=== PATIENT | female | born 1965 | race Hispanic/Latino ===

== ENCOUNTER 2018-04-02 08:58 | Emergency (ER) | payer BC, OTHER ==
[2018-04-02] MEDS ORDERED: KETOROLAC TROMETHAMINE 60 MG/2 ML VIAL ONE (09:29)
[2018-04-02] MEDS ORDERED: ONDANSETRON ODT 4 MG TAB ONE (09:30)
[2018-04-02] MEDS ORDERED: HYDROCODONE/ACETAMINOPHEN 10/325 MG TAB ONE (09:30)
[2018-04-02] MEDS ORDERED: METHYLPREDNISOLONE SOD SUCC 125MG/2ML VIAL ONE (09:58)
== END 2018-04-02 10:43 | disposition home or self-care (01) ==
LOC: EDH 08:58
DX: M54.5 Low back pain (principal); M43.10 Spondylolisthesis, site unspecified; R73.9 Hyperglycemia, unspecified; Z98.890 Other specified postprocedural states
CPT/HCPCS: 72100; 82948; 96372 ×2; 99284; J1885; J2930

== ENCOUNTER 2018-05-01 09:20 | Emergency (ER) | payer BC ==
[2018-05-01] MEDS ORDERED: DEXAMETHASONE SOD PHOSPHATE 10MG/ML 1ML VIAL ONE (10:01)
[2018-05-01] MEDS ORDERED: MORPHINE SULFATE 4 MG/1ML SYG ONE (10:01)
[2018-05-01] MEDS ORDERED: ONDANSETRON HCL 4 MG/2 ML VIAL ONE (10:01)
[2018-05-01] MEDS ORDERED: KETOROLAC TROMETHAMINE 30MG/ML ONE (10:01)
[2018-05-01] MEDS ORDERED: HYDROMORPHONE HCL 0.5 MG/0.5 ML ML ONE (10:48)
== END 2018-05-01 12:24 | disposition home or self-care (01) ==
LOC: EDH 09:20
DX: M54.16 Radiculopathy, lumbar region (principal); R20.2 Paresthesia of skin; Z98.890 Other specified postprocedural states
CPT/HCPCS: 96374; 96375; 99284; J1100; J1170; J1885; J2270; J2405

== ENCOUNTER 2018-10-09 11:54 | Emergency (ER) | payer BC ==
[2018-10-09] MEDS ORDERED: KETOROLAC TROMETHAMINE 30MG/ML ONE (12:35)
[2018-10-09] MEDS ORDERED: ONDANSETRON HCL 4 MG/2 ML VIAL ONE (12:35)
[2018-10-09] MEDS ORDERED: DEXAMETHASONE SOD PHOSPHATE 10MG/ML 1ML VIAL ONE (12:35)
[2018-10-09] MEDS ORDERED: SODIUM CHLORIDE 0.9% 1000ML 1,000 ML IV ONE (12:35)
[2018-10-09] MEDS ORDERED: HYDROMORPHONE 1 MG/1 ML AMP ONE (12:36)
== END 2018-10-09 13:45 | disposition home or self-care (01) ==
LOC: EDH 11:54
DX: M54.42 Lumbago with sciatica, left side (principal); R20.2 Paresthesia of skin; I10 Essential (primary) hypertension; Z98.890 Other specified postprocedural states
CPT/HCPCS: 96374; 96375; 99284; J1100; J1170; J1885; J2405; J7030

== ENCOUNTER 2019-03-20 10:35 | Emergency (ER) | payer BC ==
[2019-03-20] MEDS ORDERED: ORPHENADRINE CITRATE 30 MG/ML ML ONE (11:12)
[2019-03-20] MEDS ORDERED: KETOROLAC TROMETHAMINE 60 MG/2 ML VIAL ONE (11:13)
[2019-03-20] MEDS ORDERED: LIDOCAINE 5% TOPICAL PATCH TP ONE (11:13)
[2019-03-20 11:37] LABS: APPEARANCE,URINE Cloudy (CLEAR); BILIRUBIN,URINE Negative (NEGATIVE); COLOR,URINE Dark Yellow (YELLOW); GLUCOSE, URINE (UA) Negative (NEGATIVE); KETONES,URINE Negative (NEGATIVE); LEUKOCYTE ESTERASE ,URINE Negative (NEGATIVE); NITRATE,URINE Negative (NEGATIVE); OCCULT BLOOD,URINE Negative (NEGATIVE); PROTEIN,URINE Negative (NEGATIVE)
[2019-03-20 12:10] LABS: AMORPHOUS SEDIMENT,UR Few /LPF (None Seen); BACTERIA,URINE Few /HPF (None Seen); HYALINE CASTS, URINE 0-1 /LPF (0-1 /LPF); MUCUS,URINE Many LPF (None Seen); RBC,URINE None Seen /HPF (0-1); SQUAMOUS EPITHELIAL CELL,UR Moderate /HPF (0-2); WBC,URINE 0-1 /HPF (0-1)
== END 2019-03-20 11:57 | disposition home or self-care (01) ==
LOC: EDH 10:35
DX: M54.42 Lumbago with sciatica, left side (principal); I10 Essential (primary) hypertension; Z98.890 Other specified postprocedural states
CPT/HCPCS: 81001; 96372 ×2; 99284; J1885; J2360

== ENCOUNTER 2019-07-26 14:17 | Observation (INO) | payer BC ==
[~2019-07-26] VITALS: Ht 149.9 cm; Wt 51.7 kg
[2019-07-26] MEDS ORDERED: LIDOCAINE HCL 1% 20 ML VIAL ONE (14:41)
[2019-07-26] MEDS ORDERED: ONDANSETRON HCL 4 MG/2 ML VIAL ONE (14:41)
[2019-07-26] MEDS ORDERED: MORPHINE SULFATE 4 MG/1ML SYG ONE (14:41)
[2019-07-26] MEDS ORDERED: TETANUS/DIPHTHERIA TOXOID [ADULT] 0.5 ML VIAL IM ONE (14:42)
[2019-07-26 15:07] LABS: BASOPHILS % (AUTO) 0.6 % (0.0-5.0); EOSINOPHILS % (AUTO) 0.8 % (0.0-8.0); HEMATOCRIT 40.6 % (36-48); LYMPHOCYTES % (AUTO) 41.5 % (21.0-51.0); MEAN CORPUSCULAR HEMOGLOBIN 29.4 pg (27.0-33.0); MEAN CORPUSCULAR HGB CONC 33.7 g/dL (32.0-36.0); MEAN CORPUSCULAR VOLUME 87.4 fL (79-99); MONOCYTES % (AUTO) 6.5 % (3.0-13.0); NEUTROPHILS % (AUTO) 50.6 % (40.0-77.0); NUCLEATED RED BLOOD CELLS 0.1 % (0.0-0.19); PLATELET COUNT (AUTO) 311 K/uL (130-400); RED BLOOD CELL COUNT(AUTO) 4.64 MIL/uL (4.00-5.50); RED CELL DISTRIBUTION WIDTH 14.4 % (11.0-15.5); WHITE BLOOD COUNT (AUTO) 8.9 K/uL (4.8-10.8)
[2019-07-26 15:16] LABS: CREATININE 0.9 mg/dL (0.5-1.5); POTASSIUM 3.9 mmol/L (3.5-5.1)
[2019-07-26] MEDS ORDERED: SODIUM CHLORIDE 0.9% 50 ML IV ONE (15:42)
[2019-07-26] MEDS ORDERED: CEFAZOLIN SODIUM 1 GM VIAL ONE (15:42)
[2019-07-26 20:15] VITALS: BP 153/108
--- NOTE | 2019-07-26 20:15 | NUR ---
ADMISSION. PT ADMITTED INTO ROOM 402 FROM ER. PT AWAKE, ALERT AND RESPONSIVE, [place]AH[place] SPEAKING ONLY. PT C/O PAIN TO IV SITE ON RT ANTECUBITAL, IV CATHETER DISCONTINUED, CATHETER TIP INTACT. NEW IV PLACED IN RIGHT HAND. LEFT HAND DRESSING OBSERVED NO BLEEDING OR C/O PAIN AT THIS TIME. FAMILY AT BEDSIDE AND PT ORIENTED TO ROOM. CALL MAE WITHIN REACH, BED IN LOWEST POSITION. Addendum: 07/27/19 at 0124 by ERIS GARZA RN Amended: Links added.
[2019-07-26] MEDS ORDERED: MORPHINE SULFATE 2 MG/ML 1ML SYG IVP PRN (20:45)
--- NOTE | 2019-07-26 21:15 | NUR ---
MD PERALTA PAGED. SPOKE TO AT THIS TIME, INFORMED THAT PT IS IN ROOM 402. STATED TO KEEP PT NPO, AND THAT HE HAD ALREADY SCHEDULED SURGERY FOR TOMORROW 07/27/19 AT 0800, TO MAKE SURE CONSENT WAS SIGNED.
[2019-07-26] MEDS ORDERED: LISI-613 PO (21:45)
[2019-07-26] MEDS ORDERED: METF-446 PO (21:45)
[2019-07-26] MEDS: ACETAMINOPHEN-CODEINE 300/30MG TAB PO PRN (21:56)
[2019-07-26 23:29] VITALS: BP 134/85
[2019-07-26] MEDS: CEFAZOLIN SODIUM 1 GM VIAL IVP SCH (23:39)
[2019-07-27] VITALS (24 sets, daily range): BP systolic 111–156; BP diastolic 73–103
[2019-07-27] MEDS: CEFAZOLIN SODIUM 1 GM VIAL IVP SCH (07:41)
[2019-07-27] MEDS ORDERED: SODIUM CHLORIDE 0.9% 1000ML 1,000 ML IV ONE (08:12)
[2019-07-27] MEDS ORDERED: FENTANYL CITRATE PF 50 MCG/1 ML 5ML AMP IV ONE (08:18)
[2019-07-27] MEDS ORDERED: PROPOFOL 10 MG/ML 20ML VIAL IV ONE (08:18)
[2019-07-27] MEDS ORDERED: LIDOCAINE PF 2% 5ML ABBOJECT ONE (08:18)
[2019-07-27] MEDS ORDERED: MEPERIDINE-PF 25 MG/ML SYG ONE ×2 (09:12→09:23)
[2019-07-27] MEDS ORDERED: ONDANSETRON HCL 4 MG/2 ML VIAL ONE (09:17)
--- NOTE | 2019-07-27 11:00 | NUR ---
INITIAL MET W PT AND DAUGHTER AT BEDSIDE LIVES W DAUGHTER JOSELYN, DAUGHTER BRODIE WILL SUPPLY TRANSPORT AAOX3, S/P SURGERY ON FINGER, PT IS INP, EMPLOYED, NO MOBLITY DEFICITS, NO DC NEEDS WORKS IN KITCHEN, BUT HAS CONTACTED EMPLOYER WHO WILL WORK WITH HER TO GIVE HER OTHER DUTIES AT THIS TIME UNTIL HAND IS HEALED. Addendum: 07/27/19 at 1438 by SILVESTRE ZAZUETA RN CM Amended: Links added.
--- NOTE | 2019-07-27 11:27 | NUR ---
PATIENT BACK FROM OR HAS ORDERS FOR DC AFTER LUNCH, AFTER POST OP VS, POST OP VITALS WILL FINISH APPROXIMATELY 1420, PATIENT WILL BE DC'D AFTER [address] PERALTA. PATIENT WILL NEED A RIDE, STATES HER DAUGHTER CAN PICK HER UP AFTER WORK, ANTICIPATED DC TIME WILL BE CLOSE TO 4:00 PM, IS AWARE.
[2019-07-27] MEDS: ACETAMINOPHEN-CODEINE 300/30MG TAB PO PRN (14:54)
== END 2019-07-27 16:44 | disposition home or self-care (01) ==
LOC: EDH 14:17 → INTOOBSV 15:20 → EDHIP 15:20 → 4AH 20:02
PROVIDERS: ADMIT Surgery Plastic and Reconstructive Surgery; ATTEND Surgery Plastic and Reconstructive Surgery
DX: S62.635A Displaced fracture of distal phalanx of left ring finger, initial encounter for closed fracture (principal); S60.142A Contusion of left ring finger with damage to nail, initial encounter; S61.215A Laceration without foreign body of left ring finger without damage to nail, initial encounter; X58.XXXA Exposure to other specified factors, initial encounter; Y93.89 Activity, other specified; Y92.89 Other specified places as the place of occurrence of the external cause; Y99.8 Other external cause status; Z79.899 Other long term (current) drug therapy
CPT/HCPCS: 26765; 36415; 73140; 80048; 82948 ×3; 85025; 90471; 90714; 96374; 96375; 96376; 99283; A4606; A4649; A6223; C1713; G0168; G0378 ×25; J0690 ×4; J2001; J2175 ×2; J2270; J2405 ×2; J2704; J3010; J7030

== ENCOUNTER → 2023-05-09 | Outpatient (CLI) | payer OTHER ==
[~2023-05-09] MED LIST: LISI20TA24 PO; METF-446 PO; REGADENOSON 0.4 MG/5 ML PF SYG IVP ONE
== END | disposition home or self-care (01) ==
LOC: SHCH 08:12
PROVIDERS: ATTEND Internal Medicine Cardiovascular Disease
DX: R07.9 Chest pain, unspecified (principal)
CPT/HCPCS: 78452; 96374; 93017; J2785; A9500 ×2